=== PATIENT | female | born 1995 | race Caucasian/White ===

== ENCOUNTER 2018-06-22 08:38 | Day surgery (SDC) | payer OTHER ==
[~2018-06-22 08:38] MED LIST: Buffered Lidocaine 0.9% SYRIN* 5 ML/SYR SYRINGE INTRADERM ONE; Dexamethasone IV* 4 MG/ML 1 ML (4 MG) IV SLOW PU ONE; Famotidine IV* 10 MG/ML 2 ML (20 mg) IV ONE
[2018-06-22] MEDS ORDERED: Dexamethasone IV* 4 MG/ML 1 ML (4 MG) ONE (08:50)
[2018-06-22] MEDS ORDERED: Famotidine IV* 10 MG/ML 2 ML (20 mg) ONE (08:51)
[2018-06-22] MEDS ORDERED: Clindamycin 900 MG/D5W BAG(*) 900 MG/50 ML BAG IVPB ONE (08:51)
[2018-06-22] MEDS ORDERED: Lidocaine 2% PF * 5 ML VIAL ONE (09:42)
[2018-06-22] MEDS ORDERED: Ondansetron INJ* 2 MG/ML VIAL ONE (09:42)
[2018-06-22] MEDS ORDERED: Ketorolac INJ* 30 MG/ML 1 ML VIAL ONE (09:42)
[2018-06-22] MEDS ORDERED: Propofol* 10 MG/ML 20 ML BTL IV PUSH ONE (09:42)
[2018-06-22] MEDS ORDERED: fentaNYL* 50 MCG/ML 5 ML VIAL (250 MCG VIAL) ONE (09:44)
[2018-06-22] MEDS ORDERED: Midazolam* 1 MG/ML 5 ML VIAL (5 MG) ONE (09:44)
[2018-06-22] MEDS ORDERED: Naloxone* 0.4 MG/ML 1 ML VIAL IV PRN (10:20)
[2018-06-22] MEDS ORDERED: oxyCODONE/Acetamin 5/325 MG* TAB PO PRN (10:20)
[2018-06-22] MEDS ORDERED: Ondansetron INJ* 2 MG/ML VIAL IV PRN (10:20)
[2018-06-22] MEDS ORDERED: DiMENhydriNATE IV* 50 MG/ML VIAL IV PUSH PRN (10:20)
[2018-06-22] MEDS ORDERED: Scopolamine 1.5 mg* PATCH TRANSDERM PRN (10:20)
[2018-06-22] MEDS ORDERED: HYDROmorphone INJ1* 1 MG/ML SYRINGE IV PRN (10:20)
[2018-06-22] MEDS ORDERED: Bupivacaine 0.25% SDV* 30 ML ONE (10:22)
[2018-06-22] MEDS ORDERED: fentaNYL* 50 MCG/ML 2 ML VIAL (100 MCG VIAL) ONE ×2 (11:33→13:42)
[2018-06-22] MEDS: fentaNYL* 50 MCG/ML 2 ML VIAL (100 MCG VIAL) IV PRN ×2 (13:44→13:52)
[2018-06-22] MEDS ORDERED: oxyCODONE/Acetamin 5/325 MG* TAB ONE (13:56)
[2018-06-22 15:04] VITALS: BP 105/57
--- NOTE | 2018-06-23 07:38 | RAD ---
INDICATION: Right wrist scaphoid excision and fusion , M 19.131 COMPARISONS: CT dated May 08, 2018 TECHNIQUE: Fluoroscopy was provided for a surgical procedure. Total fluoroscopy time is: 1 minute, 3 seconds FINDINGS: Spot images demonstrate excision of the scaphoid and fusion across the lunate-capitate and hamate-triquetral intervals. IMPRESSION: FLUOROSCOPY WAS PROVIDED FOR A SURGICAL PROCEDURE CPT II Codes: G9500
--- NOTE | 2018-06-23 09:27 | OP ---
DATE OF OPERATION: 06/22/18 - [facility] DATE OF : 89 SURGEON: Mauricio Alberto MD AUDIENCE COORDINATOR: KERI Adam. An orthodontic assistant was needed for the entirety of the procedure to aid in positioning of the arm and retraction. ANESTHESIOLOGIST: Dr. Shultz. ANESTHESIA: General. PRE-OP DIAGNOSES: 1. 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 2. Retained suture anchor, right carpus. POST-OP DIAGNOSIS: 1. 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 2. Retained suture anchor, right carpus. OPERATIVE PROCEDURE: 1. Right wrist scaphoid excision. 2. Right wrist Four-corner fusion. 3. Right wrist posterior interosseous nerve neurectomy. 4. Removal of deep implant right wrist. INDICATIONS: Aura had a failed scapholunate ligament reconstruction. It has gone on to be a severely painful wrist. The surgery was back in 2010. The pain has become debilitating. I had seen her and sent her for a CT scan to try to get a better sense of what was viable and what joint surfaces looked okay. 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 This is a very complex problem. The lunate facet looks relatively well preserved. I told her that if the lunate facet was degenerative, there would be limited options for her other than a total wrist fusion. She understands the risks and benefits including the risk of nonunion and failure of the surgery requiring a total wrist fusion. She would like to proceed. ESTIMATED BLOOD LOSS: 5 mL. COMPLICATIONS: None. FINDINGS: See above and below. DESCRIPTION OF PROCEDURE: Aura was seen in the preoperative holding area. The correct site, side and procedure were identified. We came back to the operating room where the arm was prepped and draped in the usual fashion. The arm was exsanguinated with the Esmarch and the tourniquet was inflated to 250 mmHg. A longitudinal incision centered over the dorsum of the wrist was then made. Dissection was carried down and full-thickness flaps were raised off the extensor retinaculum. Extensor retinaculum was opened. There was quite a bit of scar tissue in the area. The retinaculum was raised radially and proximally and the extensor tendons were retracted out of the way. I then raised a distally based capsular U-flap to expose the dorsum of the carpus. The scaphoid bone was extremely flexed and pronated and only the very most proximal pole could be visualized. A Steinmann pin was placed into the scaphoid. The soft tissue around the margin of the scaphoid was released to the extent possible. The rongeur was then used to remove the scaphoid. It actually did come out in block. After the scaphoid was excised, I went ahead and excised the distal 2 cm of the posterior interosseous nerve. It was very thickened and looked like it may have had some injury to it at the prior surgery. Next, I turned my attention to the articular surfaces of the capitate and lunate. The proximal pole of the capitate was degenerative and cystic. Certainly, a proximal carpectomy would not be an option in her. The lunate facet, although she was in extreme DISI deformity, once I actually flexed the lunate back to normal alignment, the majority of the articular surface looked really good. I went ahead and prepared the fusion surfaces with a 2.4 mm joe. I did remove a mini Mitek suture anchor in order to allow myself to perform the operation. After the suture anchor was removed and the joint surfaces were prepared, I was able to oppose the capitate to the lunate. I corrected the DISI deformity. The guidewire for the mini Mitek screw was placed in the appropriate position in antegrade fashion. Once the alignment and position of the wire was confirmed on fluoroscopy, I overdrilled the wire and placed a 24 mm mini Acutrak screw. On fluoroscopy, I thought this was a little too long, so I withdrew it and placed a 22 mm screw, which was an excellent fit. Next I went ahead and placed a guidewire starting in the triquetrum and then advancing through the hamate and into the distal aspect of the capitate. This was measured, overdrilled and then second mini Acutrak screw was placed. This generated excellent compression across all the fusion surfaces. The lunotriquetral joint surface was not prepared. The cancellous autograft from the scaphoid bone that had been harvested was then packed all around the fusion sites. At this point, everything was looking good, so I closed the capsular flap with 4 -0 Ethibond suture. The extensor retinaculum was closed with 4-0 Ethibond suture. The EPL tendon was left transposed. The skin was closed with 4-0 Monocryl and Steri-Strips. Marcaine was infiltrated all around the operative area. The wounds were dressed and a short arm splint with dorsal and volar plaster slabs was applied. Tourniquet was deflated and the hand pinked up immediately. She was taken to the recovery room in stable condition. [id number]/[facility] #: [id number] MTDD
== END 2018-06-22 15:36 | disposition home or self-care (01) ==
LOC: OR 08:38
PROVIDERS: ATTEND Orthopaedic Surgery Hand Surgery
DX: M19.131 Post-traumatic osteoarthritis, right wrist (principal); M87.3 Other secondary osteonecrosis
CPT/HCPCS: 76001; 81025; 88300; 88304; 88311; A9270-GY; C1713; C1776; J1100; J1885; J2250; J2405; J2704; J3010